=== PATIENT | female | born 1995 | race African-American/Black ===

== ENCOUNTER 2017-10-16 09:49 | Emergency (ER) | payer OTHER ==
[2017-10-16 09:54] VITALS: BMI 21.9
[2017-10-16] MEDS ORDERED: SODIUM CHLORIDE 1,000 ML IV STA ×2 (09:54→12:14)
--- NOTE | 2017-10-16 09:54 | PDOC ---
History of Present Illness - General Chief Complaint: Pain Stated Complaint: BACK PAIN, URINARY FREQ, FEVER Time Seen by Provider: 10/16/17 09:54 History Source: Patient Exam Limitations: No Limitations - History of Present Illness Initial Comments: 22 yo F history prior UTI (once, occurred few years ago) presents with 4 day history of malaise, fever, body aches. She has developed urinary frequency and mid backache for the past 2 days. No known sick contacts. No respiratory symptoms. Denies cough, N/V/D. No recent travel. Did not eat anything that appeared to be bad. Past History - Past Medical History Allergies/Adverse Reactions: Allergies Allergy/AdvReac Type Severity Reaction Status Date / Time No Known Allergies Allergy Verified 10/16/17 09:50 Home Medications: Ambulatory Orders Ibuprofen [Motrin -] 600 mg PO ASDIR 10/16/17 COPD: No - Suicide/Smoking/Psychosocial Hx Smoking History: Never smoked Have you smoked in the past 12 months: No Hx Alcohol Use: (social) Review of Systems - Review of Systems Able to Perform ROS?: Yes Comments:: GENERAL/CONSTITUTIONAL: No fever or chills. No weakness. HEAD, EYES, EARS, NOSE AND THROAT: No change in vision. No ear pain or discharge. No sore throat. CARDIOVASCULAR: No chest pain or shortness of breath. RESPIRATORY: No cough, wheezing, or hemoptysis. GASTROINTESTINAL: No nausea, vomiting, diarrhea or constipation. GENITOURINARY: +Urinary frequency. No dysuria, no hematuria. MUSCULOSKELETAL: No joint or muscle swelling or pain. No neck pain. +Back pain. SKIN: No rash NEUROLOGIC: No headache, vertigo, loss of consciousness, or change in strength/ sensation. ENDOCRINE: No increased thirst. No abnormal weight change. HEMATOLOGIC/LYMPHATIC: No anemia, easy bleeding, or history of blood clots. ALLERGIC/IMMUNOLOGIC: No hives or skin allergy. *Physical Exam - Vital Signs Last Vital Signs Temp Pulse Resp BP Pulse Ox 101.5 F H 122 H 20 113/74 96 10/16/17 09:50 10/16/17 09:50 10/16/17 09:50 10/16/17 09:50 10/16/17 09:50 - Physical Exam Comments: GENERAL: Awake, alert, and fully oriented, in no acute distress. Appears ill but nontoxic. HEAD: No signs of trauma EYES: PERRLA, EOMI, sclera anicteric, conjunctiva clear ENT: Auricles normal inspection, hearing grossly normal, nares patent, oropharynx clear without exudates. Dry mucosa NECK: Normal ROM, supple, no lymphadenopathy, JVD, or masses LUNGS: Breath sounds equal, clear to auscultation bilaterally. No wheezes, and no crackles HEART: Tachycardic with normal rhythm, normal S1 and S2, no murmurs, rubs or gallops ABDOMEN: Soft, +suprapubic tenderness, normoactive bowel sounds. No guarding, no rebound. No masses. +B/L CVAT EXTREMITIES: Normal range of motion, no edema. No clubbing or cyanosis. No cords, erythema, or tenderness NEUROLOGICAL: Cranial nerves II through XII grossly intact. Normal speech, normal gait SKIN: Warm, Dry, normal turgor, no rashes or lesions noted. ED Treatment Course - LABORATORY CBC & Chemistry Diagram: 10/16/17 10:00 10/16/17 10:00 Medical Decision Making - Medical Decision Making 10/16/17 10:40 Pt tachycardic with urinary symptoms, likely pyelonephritis. Will give IV fluids , antipyretics. Awaiting labs and UA. 10/16/17 13:58 Pt reports improvement with IV hydration and antipyretics. UA wnl, flu swab negative. However, based on high temp would still suspect flu, likely a false negative. Encouraged her to drink plenty of fluids. Stable for DC home. *DC/Admit/Observation/Transfer Diagnosis at time of Disposition: Fever Qualifiers: Fever type: unspecified Qualified Code(s): R50.9 - Fever, unspecified - Discharge Dispostion Disposition: HOME Condition at time of disposition: Improved Admit: No - Referrals - Patient Instructions Printed Discharge Instructions: DI for Influenza -- Adult, DI for Fever ( Symptom) -- Adult - Post Discharge Activity Forms/Work/School Notes: Back to School
[2017-10-16] MEDS ORDERED: ACETAMINOPHEN 1000 MG/100 ML VIAL (NON FORMULARY) IVPB ONE (10:19)
[2017-10-16] MEDS ORDERED: ACETAMINOPHEN INJECTION 100 ML IVPB ONE (10:20)
[2017-10-16 10:23] LABS: MCH 30.8 pg (25.7-33.7); MCHC 33.9 g/dl (32.0-36.0); MEAN CELL VOLUME 90.9 fl (80-96); MEAN PLT VOLUME 8.6 fl (7.5-11.1); PLATELET COUNT 193 K/MM3 (134-434); RDW 13.7 % (11.6-15.6); WHITE BLOOD COUNT 9.3 K/mm3 (4.0-10.8)
[2017-10-16 10:37] LABS: ALBUMIN 3.9 g/dl (3.5-5.0); ALK PHOS 52 U/L (32-92); ANION GAP 8 (8-16); BILIRUBIN,TOTAL 0.6 mg/dl (0.2-1.0); CALCIUM 8.5 mg/dl (8.4-10.2); CO2 23 mmol/L (22-28); CREATININE 1.2 mg/dl (0.6-1.3); GLUCOSE,RANDOM 130 mg/dl (74-106); SGOT/AST 21 U/L (10-42); SGPT/ALT 19 U/L (10-40)
[2017-10-16 10:49] LABS: URINE APPEARANCE Clear; URINE BILIRUBIN 1+ (NEGATIVE); URINE BLOOD Trace-intact (NEGATIVE); URINE COLOR YELLOW; URINE GLUCOSE (UA) Negative (NEGATIVE); URINE KETONE Trace (NEGATIVE); URINE LEUK ESTERASE Negative (NEGATIVE); URINE NITRITE Negative (NEGATIVE); URINE PROTEIN Trace (NEGATIVE); URINE UROBILINOGEN 0.2 (0.2-1.0)
[2017-10-16 10:54] LABS: PLATELET ESTIMATE ADEQUATE
[2017-10-16 11:00] LABS: URINE RBC 0-3 /hpf (0-3); URINE WBC 0-3 (0-5)
[2017-10-16 11:01] LABS: URINE BACTERIA FEW /hpf (NEGATIVE)
[2017-10-16 11:59] VITALS: BP 103/56; PULSE 89; TEMP 98.6
== END 2017-10-16 14:00 | disposition home or self-care (01) ==
LOC: FER 09:49
PROC: 3E033NZ Introduction of Analgesics, Hypnotics, Sedatives into Peripheral Vein, Percutaneous Approach (ICD-10-PCS; principal; 2017-10-16)
PROC: 3E0337Z Introduction of Electrolytic and Water Balance Substance into Peripheral Vein, Percutaneous Approach (ICD-10-PCS; 2017-10-16)
DX: R50.9 Fever, unspecified (principal)
CPT/HCPCS: 36415; 71020-TC; 80053; 81003; 81015; 83605; 84703; 85025; 87040; 87086; 87804; 99285-25